=== PATIENT | female | born 1980 | race Caucasian/White ===

== ENCOUNTER 2016-12-16 05:38 | Inpatient (IN) | payer OTHER ==
[~2016-12-16] VITALS: Ht 160 cm; Wt 96.8 kg
[~2016-12-16 05:38] MED LIST: DULO60CA44 PO; GABA-531 PO; LEVO200 PO; PERCT10 PO; RINGERS SOLUTION,LACTATED 1,000 ML IV ONE
[2016-12-16] MEDS ORDERED: CeFAZolin 2 GM/DEXTROSE 50 ML IV ONE ×2 (05:52→07:00)
[2016-12-16] MEDS ORDERED: RINGERS SOLUTION,LACTATED 1,000 ML IV ONE ×3 (05:52→08:27)
[2016-12-16 06:37] LABS: BASOPHILS # (AUTO) 0.06 K/uL (0.00-0.20); BASOPHILS % (AUTO) 1.1 % (0.0-2.0); EOSINOPHILS # (AUTO) 0.09 K/uL (0.00-0.70); EOSINOPHILS % (AUTO) 1.65 % (1.0-6.0); HEMATOCRIT 32.8 % (36-46); HEMOGLOBIN 11.2 g/dL (12.0-16.0); LYMPHOCYTES # (AUTO) 2.1 K/uL (1.0-4.8); LYMPHOCYTES % (AUTO) 38.4 % (22.0-44.0); MEAN CORPUSCULAR HEMOGLOBIN 28.7 pg (26.0-34.0); MEAN CORPUSCULAR HGB CONC 34.2 G/dL (31.0-37.0); MEAN CORPUSCULAR VOLUME 84 fL (80-100); MONOCYTES # (AUTO) 0.5 K/uL (0.1-1.0); MONOCYTES % (AUTO) 9.6 % (2.0-9.0); NEUTROPHILS # (AUTO) 2.7 K/uL (1.8-7.7); NEUTROPHILS % (AUTO) 49.3 % (40.0-70.0); PLATELET COUNT (AUTO) 294 K/uL (150-450); RED BLOOD CELL COUNT(AUTO) 3.91 MIL/uL (4.00-5.20); RED CELL DISTRIBUTION WIDTH 13.7 % (11.5-14.5); WHITE BLOOD COUNT (AUTO) 5.5 K/uL (4.5-11.0)
[2016-12-16 06:48] LABS: ANION GAP 10 mmol/L (8-16); CALCIUM, TOTAL 8.3 mg/dL (8.8-10.5); CARBON DIOXIDE 25 mmol/L (22-29); CHLORIDE 106 mmol/L (98-107); CREATININE 0.62 mg/dL (0.60-1.30); GLOMERULAR FILTR. RATE CALC > 60 mL/min (>60); POTASSIUM 4.4 mmol/L (3.5-5.1); SODIUM SERUM 141 mmol/L (136-145); UREA NITROGEN, BLOOD 7 mg/dL (7-18)
[2016-12-16 06:51] LABS: PROTHROMBIN TIME 10.6 SEC (9.4-11.6)
[2016-12-16] MEDS ORDERED: SODIUM CHLORIDE 0.9% 10 ML ONE (06:57)
[2016-12-16] MEDS ORDERED: RINGERS SOLUTION,LACTATED 1,000 ML IV SCH ×2 (07:00→11:30)
[2016-12-16] MEDS: THROMBIN, BOVINE 20000 UNITS/VIAL POWDER TP ONE ×2 (08:10→08:54)
[2016-12-16] MEDS: BACITRACIN 50,000 UNITS/VIAL ONE ×2 (08:10→08:53)
[2016-12-16] MEDS: GELATIN SPONGE,ABSORBABLE 100 MM TP ONE ×2 (08:10→08:53)
[2016-12-16] MEDS: BUPIVACAINE LIPOSOME/PF 1.3%-13.3MG/ML SUSPENSION 20 ML VIAL INJ ONE ×2 (08:54→10:55)
[2016-12-16] MEDS ORDERED: ONDANSETRON HCL 4 MG/2 ML VIAL IVP PRN ×3 (09:00→15:45)
[2016-12-16] MEDS: ACETAMINOPHEN 1000 MG/ISO-OSM 100 ML IV SCH ×2 (09:00→17:06)
[2016-12-16] MEDS ORDERED: PROPOFOL 1000 MG/ISO-OSM 100 ML IV ONE (09:32)
[2016-12-16] MEDS ORDERED: METOPROLOL TARTRATE 5 MG/5 ML VIAL IVP ONE ×2 (11:20→12:30)
[2016-12-16] MEDS ORDERED: PROPOFOL 1% 20 ML VIAL IVP ONE (11:20)
[2016-12-16] MEDS ORDERED: ONDANSETRON HCL 4 MG/2 ML VIAL IVP ONE (11:20)
[2016-12-16] MEDS ORDERED: GLYCOPYRROLATE 0.2 MG/ML VIAL IM ONE (11:20)
[2016-12-16] MEDS ORDERED: ROCURONIUM BROMIDE 10 MG/ML 5 ML VIAL IVP ONE (11:20)
[2016-12-16] MEDS ORDERED: LIDOCAINE HCL/PF 2% 5 ML VIAL INJ ONE (11:20)
[2016-12-16] MEDS ORDERED: NEOSTIGMINE METHYLSULFATE 1 MG/ML 10 ML VIAL IVP ONE (11:20)
[2016-12-16] MEDS ORDERED: DEXAMETHASONE SOD PHOS 4 MG/ML VIAL IVP ONE (11:20)
[2016-12-16] MEDS ORDERED: GABAPENTIN 300 MG CAPSULE PO SCH (11:30)
[2016-12-16] MEDS ORDERED: ACETAMINOPHEN 325 MG TABLET PO PRN ×2 (11:30→15:45)
[2016-12-16] MEDS ORDERED: MAG HYDROX/AL HYDROX/SIMETH 30 ML SUSP UDCUP PO PRN (11:30)
[2016-12-16] MEDS ORDERED: LEVOTHYROXINE SODIUM 200 MCG TABLET PO SCH (11:30)
[2016-12-16] MEDS: FentaNYL CITRATE-PF 100 MCG/2 ML VIAL IVP PRN ×2 (11:50→12:10)
[2016-12-16] MEDS ORDERED: SODIUM CHLORIDE 0.9% 100 ML ONE (11:52)
[2016-12-16] MEDS: HYDROmorphone 2 MG/ML SYRINGE IVP PRN ×10 (11:57→23:49)
[2016-12-16] MEDS ORDERED: HYDROmorphone 2 MG/ML SYRINGE ONE (11:57)
[2016-12-16] MEDS ORDERED: HYDROmorphone 2 MG/ML SYRINGE IVP ONE ×2 (12:00→15:30)
[2016-12-16] MEDS ORDERED: FentaNYL CITRATE-PF 250 MCG/5 ML VIAL IVP ONE (12:00)
[2016-12-16] MEDS ORDERED: KETAMINE HCL 50 MG/ML 10 ML VIAL IVP ONE (12:00)
[2016-12-16] MEDS ORDERED: MIDAZOLAM HCL 2 MG/2 ML VIAL IVP ONE (12:00)
[2016-12-16] MEDS ORDERED: MEPERIDINE-PF 25 MG/ML SYRINGE IVP PRN (12:00)
[2016-12-16] MEDS ORDERED: MEPERIDINE-PF 25 MG/ML SYRINGE ONE (12:01)
[2016-12-16] MEDS ORDERED: METOPROLOL TARTRATE 5 MG/5 ML VIAL ONE (12:28)
[2016-12-16] MEDS ORDERED: 0.9% SODIUM CHLORIDE 10 ML SYRINGE IVP ONE (12:31)
[2016-12-16 12:50] VITALS: BP 143/83
[2016-12-16 14:45] VITALS: BP 144/87
[2016-12-16] MEDS: BISACODYL 5 MG EC TABLET PO SCH (15:17)
[2016-12-16] MEDS: GABAPENTIN 300 MG CAPSULE PO SCH ×2 (15:17→20:58)
[2016-12-16] MEDS: CYCLOBENZAPRINE HCL 10 MG TABLET PO SCH ×3 (15:17→20:59)
[2016-12-16] MEDS: CeFAZolin 1 GM/DEXTROSE 50 ML IV SCH ×2 (16:14→23:59)
[2016-12-16 18:50] VITALS: BP 133/77
[2016-12-16] MEDS ORDERED: OXYGEN THERAPY IH SCH (20:00)
[2016-12-16] MEDS: DOCUSATE SODIUM 100 MG CAPSULE PO SCH (20:59)
[2016-12-16] MEDS: METOPROLOL TARTRATE 25 MG TABLET PO SCH (20:59)
[2016-12-16] MEDS ORDERED: DOCUSATE SODIUM 100 MG CAPSULE PO SCH (21:00)
[2016-12-16 21:13] VITALS: BP 133/75
[2016-12-16] MEDS ORDERED: MethylPREDNISolone SOD SUCC 125 MG/2 ML VIAL IVP ONE (21:15)
[2016-12-17] VITALS: BP 113/68
[2016-12-17] MEDS: ACETAMINOPHEN 1000 MG/ISO-OSM 100 ML IV SCH (00:59)
[2016-12-17] MEDS: HYDROmorphone 2 MG/ML SYRINGE IVP PRN ×10 (01:13→23:44)
[2016-12-17 04:02] VITALS: BP 125/70
[2016-12-17] MEDS ORDERED: HYDROCODONE/ACETAMINOPHEN 5-325 MG TABLET PO PRN (05:45)
[2016-12-17 06:40] LABS: ANION GAP 9 mmol/L (8-16); CALCIUM, TOTAL 8.5 mg/dL (8.8-10.5); CARBON DIOXIDE 26 mmol/L (22-29); CHLORIDE 104 mmol/L (98-107); CREATININE 0.71 mg/dL (0.60-1.30); GLOMERULAR FILTR. RATE CALC > 60 mL/min (>60); SODIUM SERUM 139 mmol/L (136-145); UREA NITROGEN, BLOOD 8 mg/dL (7-18)
[2016-12-17 06:42] LABS: THYROID STIMULATING HORMONE < 0.01 uIU/mL (0.36-3.74)
[2016-12-17 07:06] LABS: BASOPHILS % (AUTO) 0.1 % (0.0-2.0); EOSINOPHILS % (AUTO) 0 % (1.0-6.0); HEMATOCRIT 30.9 % (36-46); HEMOGLOBIN 10.3 g/dL (12.0-16.0); LYMPHOCYTES # (AUTO) 0.8 K/uL (1.0-4.8); LYMPHOCYTES % (AUTO) 9.4 % (22.0-44.0); MEAN CORPUSCULAR HEMOGLOBIN 28.2 pg (26.0-34.0); MEAN CORPUSCULAR HGB CONC 33.5 G/dL (31.0-37.0); MEAN CORPUSCULAR VOLUME 84 fL (80-100); MONOCYTES # (AUTO) 0.2 K/uL (0.1-1.0); MONOCYTES % (AUTO) 1.7 % (2.0-9.0); PLATELET COUNT (AUTO) 282 K/uL (150-450); RED BLOOD CELL COUNT(AUTO) 3.66 MIL/uL (4.00-5.20); RED CELL DISTRIBUTION WIDTH 13.3 % (11.5-14.5)
[2016-12-17 07:07] LABS: NEUTROPHILS % (AUTO) 88.8 % (40.0-70.0)
[2016-12-17] MEDS: OXYGEN THERAPY IH SCH ×2 (08:00→20:00)
[2016-12-17 08:31] VITALS: BP 122/72
[2016-12-17] MEDS: CYCLOBENZAPRINE HCL 10 MG TABLET PO SCH ×3 (08:39→20:16)
[2016-12-17] MEDS: DOCUSATE SODIUM 100 MG CAPSULE PO SCH ×2 (08:39→20:16)
[2016-12-17] MEDS: GABAPENTIN 300 MG CAPSULE PO SCH ×2 (08:39→20:16)
[2016-12-17] MEDS: DULoxetine HCL 60 MG CAPSULE PO SCH (08:39)
[2016-12-17] MEDS: BISACODYL 5 MG EC TABLET PO SCH (08:39)
[2016-12-17] MEDS: METOPROLOL TARTRATE 25 MG TABLET PO SCH ×2 (08:40→20:16)
[2016-12-17] MEDS: PANTOPRAZOLE SODIUM 40 MG DR TABLET PO SCH (08:40)
[2016-12-17] MEDS: OxyCODONE HCL/ACETAMINOPHEN 10-325 MG TABLET PO PRN ×3 (11:56→23:11)
[2016-12-17 12:01] VITALS: BP 138/79
[2016-12-17 16:07] VITALS: BP 126/73
[2016-12-17] MEDS ORDERED: MAGNESIUM HYDROXIDE SUSPENSION 30 ML UDCUP PO PRN (19:00)
[2016-12-17 20:24] VITALS: BP 118/76
[2016-12-18 00:05] VITALS: BP 121/69
[2016-12-18] MEDS: HYDROmorphone 2 MG/ML SYRINGE IVP PRN ×3 (02:34→08:27)
[2016-12-18 02:51] VITALS: BP 125/70
[2016-12-18] MEDS ORDERED: 0.9% SODIUM CHLORIDE 10 ML SYRINGE IVP PRN (03:45)
[2016-12-18] MEDS: OxyCODONE HCL/ACETAMINOPHEN 10-325 MG TABLET PO PRN ×3 (03:47→12:24)
[2016-12-18 08:00] VITALS: BP 143/79
[2016-12-18] MEDS: OXYGEN THERAPY IH SCH (08:00)
[2016-12-18] MEDS: GABAPENTIN 300 MG CAPSULE PO SCH (08:27)
[2016-12-18] MEDS: PANTOPRAZOLE SODIUM 40 MG DR TABLET PO SCH (08:27)
[2016-12-18] MEDS: CYCLOBENZAPRINE HCL 10 MG TABLET PO SCH (08:28)
[2016-12-18] MEDS: BISACODYL 5 MG EC TABLET PO SCH (08:28)
[2016-12-18] MEDS: METOPROLOL TARTRATE 25 MG TABLET PO SCH (08:28)
[2016-12-18] MEDS: DOCUSATE SODIUM 100 MG CAPSULE PO SCH (08:28)
[2016-12-18] MEDS: DULoxetine HCL 60 MG CAPSULE PO SCH (08:36)
[2016-12-18] MEDS ORDERED: CYCL10 PO (09:13)
[2016-12-18 12:00] VITALS: BP 137/81
== END 2016-12-18 15:11 | disposition home or self-care (01) | DRG 460 ==
LOC: 4E 05:38
PROVIDERS: ADMIT Neurological Surgery; ATTEND Neurological Surgery
PROC: 0SG30AJ Fusion of Lumbosacral Joint with Interbody Fusion Device, Posterior Approach, Anterior Column, Open Approach (ICD-10-PCS; 2016-12-16)
PROC: 0SG0071 Fusion of Lumbar Vertebral Joint with Autologous Tissue Substitute, Posterior Approach, Posterior Column, Open Approach (ICD-10-PCS; 2016-12-16)
PROC: 0SG3071 Fusion of Lumbosacral Joint with Autologous Tissue Substitute, Posterior Approach, Posterior Column, Open Approach (ICD-10-PCS; 2016-12-16)
PROC: 0SB20ZZ Excision of Lumbar Vertebral Disc, Open Approach (ICD-10-PCS; 2016-12-16)
PROC: 0SB40ZZ Excision of Lumbosacral Disc, Open Approach (ICD-10-PCS; 2016-12-16)
PROC: 0SG00AJ Fusion of Lumbar Vertebral Joint with Interbody Fusion Device, Posterior Approach, Anterior Column, Open Approach (ICD-10-PCS; principal; 2016-12-16 08:10)
DX: M51.16 Intervertebral disc disorders with radiculopathy, lumbar region (principal); M51.27 Other intervertebral disc displacement, lumbosacral region; E66.9 Obesity, unspecified; R00.0 Tachycardia, unspecified; M96.1 Postlaminectomy syndrome, not elsewhere classified; M47.9 Spondylosis, unspecified; E05.80 Other thyrotoxicosis without thyrotoxic crisis or storm; T38.1X5A Adverse effect of thyroid hormones and substitutes, initial encounter; Z85.850 Personal history of malignant neoplasm of thyroid; Z68.37 Body mass index [BMI] 37.0-37.9, adult; Z79.899 Other long term (current) drug therapy; Y92.89 Other specified places as the place of occurrence of the external cause
CPT/HCPCS: 84443; 86850; 86900; 86901; 86920; 87081; 93005; 94760; 97161; 97165; C1713; C9290; G0238; J0131; J0690; J1030; J1100; J1170; J2175; J2250; J2405; J2704; J2930; J3010; J3490; J7050; J7120